=== PATIENT | female | born 1955 | race Asian ===

== ENCOUNTER → 2020-07-21 | Outpatient (CLI) | payer OTHER | END | disposition home or self-care (01) | LOC: RD 11:17 | DX: R05 Cough (principal) ==

== ENCOUNTER → 2020-07-27 | Outpatient (CLI) | payer OTHER | END | disposition home or self-care (01) | LOC: RD 16:40 → LB 16:40 | DX: M25.511 Pain in right shoulder (principal) ==

== ENCOUNTER → 2020-08-27 | Outpatient (CLI) | payer OTHER | END | disposition home or self-care (01) | LOC: RD 10:51 | DX: Z11.52 Encounter for screening for COVID-19 (principal) ==